=== PATIENT | male | born 1970 | race Caucasian/White ===

== ENCOUNTER 2021-08-15 12:41 | Day surgery (SDC) | payer OTHER, SELFPAY ==
[2021-08-15] MEDS: Lactated Ringers 1,000 ML 100 ML IV (12:55)
[2021-08-15 13:08] VITALS: BP 128/71; PULSE 53; RESP 16; TEMP 36.3; O2SAT 98; BMI 28.8
--- NOTE | 2021-08-15 13:32 | PCM.HP.BLA ---
History and Physical Date of Admission: 08/15/21 Date of Service: 07/22/21 MR#:[id number]:[id number]: DOMINIQUE IBRAHIM #:[id number]:1970 Provider:Yeni Candelario/Sex: 50/M [facility] Int[facility] Vital Signs 07/22/21 09:31 Height 6 ft 1 in Weight: 222 lb 4 oz BMI 29.3 BP 143/86 H Blood Pressure Location Rt brachial Position Sitting Respiration 18 Pulse 60 Pulse Source NIBP Temp 97.6 F L Temp Source Temporal Pulse Oximetry (%) 98 Oxygen Delivery Method room air Intake Visit Reasons: CSCOPE Chief Complaint: screening colonoscopy Barrel Endshake Adjuster Required: No Is patient in pain?: No Allergies No Known Allergies Allergy (Verified 07/22/21 09:32) Medications NK 07/22/21 [History Confirmed 07/22/21] PFSH Medical History (Updated 07/22/21 @ 10:[address] Suresh Burk MD) Anxiety Surgical History (Updated 07/22/21 @ 09:30 by Crista Whitley) No pertinent past surgical history Family History (Updated 07/22/21 @ 09:31 by Crista Whitley) Father Diabetes Heart disease Brother Hypertension Social History (Updated 07/22/21 @ 09:31 by Crista Whitley) Smoking Status: Never smoker HPI HPI HPI: DOMINIQUE IBRAHIM, is a 50 M who presents to the office today with need to schedule screening colonoscopy. Patient has not had prior colonoscopy. Patient has no personal history of diverticulitis, inflammatory bowel disease, or cancer. They describe their bowel habits as normal and occurring once daily with no straining. They are described as soft and formed. Any blood is noted very infrequently and he denies any new fatigue. They do not regularly take fiber supplements but Mr. Ibrahim does take a balanced diet. Patient has no family history of diverticulitis, inflammatory bowel disease, or colon cancer. The patient's weight is stable. Mr. Ibrahim was prompted to seek a screening colonoscopy at the behest of his significant other who is a longtime GI nurse. ROS General General: No weight change, appetite, fatigue, colon cancer, breast cancer or weakness HEENT HEENT: No difficulty swallowing, eye injury, eye surgery, swollen glands or hoarseness Endo Endocrine: No thyroid disease, diabetes mellitus, thyroid cancer, Hair loss, heat intolerance or cold intolerance Cardio Cardiovascular: No murmur, pacemaker, heart disease, atrial fibrillation, high blood pressure, heart attack, heart stent, palpitations, shortness of breat with exertion or chest pain Psych Psychiatric: Yes anxiety; No depression or hearing voices Resp Respiratory: No shortness of breath, No sleep apnea, No cough, No COPD, No asthma, No emphysema and No wheezing Gastro Gastrointestinal: No abdominal pain, No nausea or vomiting, No diarrhea, No constipation, No blood in stool, No acid reflux, No hemorrhoids, No ulcers, No gallbladder problem and No black,tarry stools Elie Hematologic: No blood thinners, No blood disorders, No bleeding, No anemia and No blood clots Neuro Neurologic: No weakness Exam Const General: cooperative, healthy appearing, comfortable, no acute distress, well developed and well groomed Orientation: alert, awake and oriented x3 Resp Effort & Inspection: normal respiratory effort Auscultation: clear to auscultation bilaterally, no rales, no rhonchi and no wheezes Cardio Rhythm: regular rhythm and abnormal rhythm Heart Sounds: S1 normal and S2 normal GI Inspection: normal to inspection, no scars and no visible herniation Palpation: soft, no masses and nontender Assessment and Plan Assessment and Plan (1) Colon cancer screening: Status: Acute Comment: Patient presents for routine screening colonoscopy. He has normal bowel habits. He appears to be at average risk for colon cancer with no first-degree relatives and no personal history of GI diagnoses. Plan - Dr. Suresh Burk MD: Plan to proceed for screening colonoscopy with MAC. Pre-procedure prep discussed and paper instructions provided. Patient is also made aware that he will need to have a fast food delivery driver with him the day of the procedure. I have re-examined the patient. There are no clinical changes since date of exam. Patient states that his reflux has been under better control over the last week. He also states that his prep was uneventful for the colonoscopy and confirms that his output has now been clear.
--- NOTE | 2021-08-15 13:45 | GASB_PTH ---
PATIENT: DOMINIQUE LOZADA LOC: EN U#:[id number] AGE/SX: 51/M ROOM: RE08/15/[address]: Dr. Suresh Burk MD : 1970 BED: DIS: 08/15/2021 SPEC #: [id number] RECD: 08/15/21 15:07 STATUS: REAL TOOTIE #: [id number] JONO: 08/15/21 13:[address]: Suresh Burk DEPT: SURGICAL PATHOLOGY RECD BY: Roland Rangel ENTERED: 08/16/21 10:30 SP TYPE: Gastric Bx OTHR DR: No Primary Care Phys Tissues: A - Gastric mucous membrane B - Gastric mucous membrane C - Gastric mucous membrane D - Transverse colon Procedures: Special Stain Group II Surgery Specimen Level IV Alcian Blue/PAS (control) HEADER OPERATION: Colonoscopy, EGD ([facility]) PRE-OP DIAGNOSIS: GERD, screening TISSUE SUBMITTED: A ? Antral biopsy for H. pylori and pathology, B ? GE junction biopsy, C ? Gastric body biopsy, D ? Transverse colon polyp biopsy MICROSCOPIC DIAGNOSIS A. Gastric antrum, biopsy: Chronic gastritis. See comment. B. Gastroesophageal junction, biopsy: Chronic inflammation. Focal changes of reflux. No evidence of goblet cell metaplasia. See comment. C. Gastric body, biopsy: Minimal chronic inflammation. D. Transverse colon polyp, biopsy: Polypoid fragments of benign colonic mucosa. See comment. AM:minna 08/17/2021 COMMENT A. The results of immunohistochemistry for Helicobacter pylori will be reported separately ([id number]). B. Alcian blue/PAS stain with matched control supports the above diagnosis. D. Neither hyperplastic nor adenomatous change is seen. Clinical correlation is suggested. MICROSCOPIC DESCRIPTION Slides are reviewed. GROSS DESCRIPTION A - Received in fixative is one container labeled with the patient's name and designated antral biopsy. The specimen consists of multiple irregular fragments of light el soft tissue that in aggregate measure 0.5 x 0.5 x 0.1 cm. The specimen is totally submitted in one cassette. B - Received in fixative is one container labeled with the patient's name and designated GE junction biopsy. The specimen consists of two irregular fragments of light el soft tissue that in aggregate measure 0.5 x 0.3 x 0.1 cm. The specimen is totally submitted in one cassette. C - Received in fixative is one container labeled with the patient's name and designated gastric body biopsy. The specimen consists of two irregular fragments of light el soft tissue that in aggregate measure 0.4 x 0.4 x 0.1 cm. The specimen is totally submitted in one cassette. D - Received in fixative is one container labeled with the patient's name and designated transverse colon polyp biopsy. The specimen consists of two irregular fragments of light el soft tissue that in aggregate measure 0.3 x 0.2 x 0.1 cm. The specimen is totally submitted in one cassette. / SJ:rg 08/16/21 TC:3 CPT: 60391 x4, 76154
--- NOTE | 2021-08-15 13:45 | IMM_PTH ---
PATIENT: DOMINIQUE LOZADA LOC: EN U#:[id number] AGE/SX: 51/M ROOM: RE08/15/[address]: Dr. Suresh Burk MD : 1970 BED: DIS: 08/15/2021 SPEC #: [id number] RECD: 08/16/21 13:43 STATUS: REAL REQ #: [id number] JONO: 08/15/21 13:[address]: Suresh Burk DEPT: IMMUNOHISTOCHEMISTRY RECD BY: Ida Cruz ENTERED: 08/16/21 13:43 SP TYPE: IMMUNO OTHR DR: No Primary Care Phys Tissues: A - Stomach, NOS Procedures: H Pylori (initial) PHYSICIAN & INSTITUTION [place] [address] SPECIMEN INFORMATION: Tissue Source: A ? Antral biopsy Clinical Info: GERD, screening Specimen Number: [id number] CPT code: 83758 METHODOLOGY: Deparaffinized sections of prefer/formalin-fixed tissue or PAP/DQ stained slides are incubated with monoclonal/polyclonal antibodies/oligonucleotide probes. Localization is made via biotin free immunoperoxidase method. Appropriate controls are performed and reacted as expected. Results on target cell population are indicated in the following table: RESULTS: ANTIBODY / CLONE RESULT Block A H Pylori (polyclonal) positive These tests were developed and their performance characteristics determined by [facility]. They may not have been cleared or approved by the U.S. Food and Drug Administration. The FDA has determined that such clearance or approval is not necessary. INTERPRETATION: A. Antral biopsy: Positive for Helicobacter pylori organisms. AM:minna 08/17/2021
[2021-08-15 14:40] VITALS: BP 128/71; BP 97/42; PULSE 58; RESP 16; TEMP 35.8; O2SAT 96
[2021-08-15 14:45] VITALS: BP 111/80; BP 128/71; PULSE 56; RESP 16; O2SAT 100
--- NOTE | 2021-08-15 14:46 | OP.CCLET_ITS ---
08/15/2021 No Primary Care Physician Re : Upper GI endoscopy procedure for Perry Ibrahim Dear Care Physician This procedure was performed on Sunday, August 15, 2021. My impressions and recommendations are as follows: Impressions : - Erythematous duodenopathy. - Acute gastritis. Biopsied. - No gross lesions in esophagus. Biopsied. Recommendations : - Discharge patient to home (via wheelchair). - Resume regular diet today. - Continue present medications. - Await pathology results. My findings are described in the full procedure note, which is enclosed. If I can be of further assistance, please feel free to contact me at Doctor phone number(s): , Work: . Sincerely, Suresh Burk MD 08/15/2021 2:45:52 PM This report has been signed electronically.
--- NOTE | 2021-08-15 14:46 | OP.EGD_ITS ---
Patient Name: Perry Ibrahim Procedure Date: 08/15/2021 1:27 PM Date of : 1970 Age: 51 Procedure: Upper GI endoscopy Indications: Suspected gastro-esophageal reflux disease Providers: Suresh Burk MD Medicines: Monitored Anesthesia Care Patient Profile: Refer to note in patient chart for documentation of history and physical. Complications: No immediate complications. Estimated blood loss: Minimal. Procedure: Pre-Anesthesia Assessment: - ASA Grade Assessment: I - A normal, healthy patient. - The heart rate, respiratory rate, oxygen saturations, blood pressure, adequacy of pulmonary ventilation, and response to care were monitored throughout the procedure. After obtaining informed consent, the endoscope was passed under direct vision. Throughout the procedure, the patient's blood pressure, pulse, and oxygen saturations were monitored continuously. The gastroscope was introduced through the mouth, and advanced to the second part of duodenum. The upper GI endoscopy was accomplished without difficulty. The patient tolerated the procedure fairly well. Scope In: 1:41:14 PM Scope Out: 1:58:56 PM Total Procedure Duration Time 0 hours 17 minutes 42 seconds Findings: Patchy mildly erythematous mucosa without active bleeding and with no stigmata of bleeding was found in the first portion of the duodenum. Patchy mild inflammation characterized by erythema was found in the gastric antrum. Biopsies were taken with a cold forceps for histology. Biopsies were taken with a cold forceps for Helicobacter pylori testing. Estimated blood loss was minimal. No gross lesions were noted in the lower third of the esophagus. Biopsies were taken with a cold forceps for histology. Estimated blood loss was minimal. Impression: - Erythematous duodenopathy. - Acute gastritis. Biopsied. - No gross lesions in esophagus. Biopsied. Recommendation: - Discharge patient to home (via wheelchair). - Resume regular diet today. - Continue present medications. - Await pathology results. Procedure Code(s): --- Professional --- 46824, Esophagogastroduodenoscopy, flexible, transoral; with biopsy, single or multiple Diagnosis Code(s): --- Professional --- K31.89, Other diseases of stomach and duodenum K29.00, Acute gastritis without bleeding CPT copyright 2017 [employer]. All rights reserved. The codes documented in this report are preliminary and upon hvac maintenance technician review may be revised to meet current compliance requirements. Suresh Burk MD 08/15/2021 2:45:52 PM This report has been signed electronically. Number of Addenda: 0 Note Initiated On: 08/15/2021 1:27 PM
[2021-08-15 14:50] VITALS: BP 119/77; BP 128/71; PULSE 55; RESP 16; O2SAT 100
[2021-08-15 14:55] VITALS: BP 115/83; BP 128/71; PULSE 58; RESP 16; TEMP 35.9; O2SAT 99
--- NOTE | 2021-08-15 14:56 | OP.COLON_ITS ---
Patient Name: Perry Ibrahim Procedure Date: 08/15/2021 1:59 PM Date of : 1970 Age: 51 Procedure: Colonoscopy Indications: This is the patient's first colonoscopy Providers: Suresh Burk MD Medicines: Monitored Anesthesia Care Patient Profile: Refer to note in patient chart for documentation of history and physical. Refer to note in patient chart for documentation of history and physical. Last Colonoscopy: none. The patient's first colonoscopy is today. Complications: No immediate complications. Estimated blood loss: Minimal. Procedure: Pre-Anesthesia Assessment: - ASA Grade Assessment: I - A normal, healthy patient. - The heart rate, respiratory rate, oxygen saturations, blood pressure, adequacy of pulmonary ventilation, and response to care were monitored throughout the procedure. After I obtained informed consent, the scope was passed under direct vision. Throughout the procedure, the patient's blood pressure, pulse, and oxygen saturations were monitored continuously. The adult colonoscope was introduced through the anus and advanced to the ascending colon. The colonoscopy was aborted due to the difficulty of the procedure. Lavage did not allow for the successful completion of the procedure. The quality of the bowel preparation was inadequate. Scope In: 2:02:55 PM Scope Withdrawal Time 0 hours 17 minutes 31 seconds Scope Out: 2:36:26 PM Total Procedure Duration Time 0 hours 33 minutes 31 seconds Findings: A 6 mm polyp was found in the proximal transverse colon. The polyp was hyperplastic. Biopsies were taken with a cold forceps for histology. Estimated blood loss was minimal. The exam was otherwise without abnormality on direct and retroflexion views. Impression: - The procedure was aborted due to the difficulty of the procedure. - Preparation of the colon was inadequate. - One 6 mm polyp in the proximal transverse colon. Biopsied. - The examination was otherwise normal on direct and retroflexion views. Recommendation: - Discharge patient to home (via wheelchair). - Await pathology results. - Repeat colonoscopy in 1 month for screening purposes. - Continue present medications. Procedure Code(s): --- Professional --- 87436, 50, Colonoscopy, flexible; with biopsy, single or multiple Diagnosis Code(s): --- Professional --- Z53.8, Procedure and treatment not carried out for other reasons D12.3, Benign neoplasm of transverse colon (hepatic flexure or splenic flexure) CPT copyright 2017 [employer]. All rights reserved. The codes documented in this report are preliminary and upon excavator operator review may be revised to meet current compliance requirements. Suresh Burk MD 08/15/2021 2:56:07 PM This report has been signed electronically. Number of Addenda: 0 Note Initiated On: 08/15/2021 1:59 PM
--- NOTE | 2021-08-15 14:57 | OP.CCLET_ITS ---
08/15/2021 No Primary Care Physician Re : Colonoscopy procedure for Perry Ibrahim Dear Care Physician This procedure was performed on Sunday, August 15, 2021. My impressions and recommendations are as follows: Impressions : - The procedure was aborted due to the difficulty of the procedure. - Preparation of the colon was inadequate. - One 6 mm polyp in the proximal transverse colon. Biopsied. - The examination was otherwise normal on direct and retroflexion views. Recommendations : - Discharge patient to home (via wheelchair). - Await pathology results. - Repeat colonoscopy in 1 month for screening purposes. - Continue present medications. My findings are described in the full procedure note, which is enclosed. If I can be of further assistance, please feel free to contact me at Doctor phone number(s): , Work: . Sincerely, Suresh Burk MD 08/15/2021 2:56:07 PM This report has been signed electronically.
[2021-08-15 15:09] VITALS: BP 128/71
== END 2021-08-15 15:33 | disposition home or self-care (01) ==
LOC: EN 12:44 → AC 12:44
PROVIDERS: Referring Provider Surgery; Visit Provider Surgery
PROC: 0DJD8ZZ Inspection of Lower Intestinal Tract, Via Natural or Artificial Opening Endoscopic (ICD-10-PCS; CPT 45378; principal; 2021-08-15 13:40)
DX: Z12.11 Encounter for screening for malignant neoplasm of colon (principal); K63.5 Polyp of colon; Z53.8 Procedure and treatment not carried out for other reasons; K29.50 Unspecified chronic gastritis without bleeding; K21.9 Gastro-esophageal reflux disease without esophagitis
CPT/HCPCS: 43239; 45378; 87426; 88305; 88313; 88342; C9803; J7120

== ENCOUNTER 2021-08-29 12:30 | Day surgery (SDC) | payer OTHER, SELFPAY ==
[2021-08-29] VITALS (8 sets, daily range): BP systolic 94–133; BP diastolic 61–94; PULSE 47–69; RESP 16–18; TEMP 36–36.6; O2SAT 99–100; BMI 28.6
--- NOTE | 2021-08-29 13:17 | HP.PCM_ITS ---
History and Physical Date of Admission: 08/29/21 08/15/21 1332MR#: [id number]:DOMINIQUE IBRAHIM DRep #:[id number]: 1970 51From: Suresh Burk MDPCP:Care Physician,No Primary Status:REG SDCLocation: [id number] History and Physical Date of Admission: 08/15/21 Date of Service: 07/22/21 MR#:[id number]: DOMINIQUE IBRAHIM DALERep #:[id number]:1970 Provider:Dr. Suresh Burk, MDAge/Sex: 50/M [facility] Vital Signs 07/22/21 09:31 Height 6 ft 1 in Weight: 222 lb 4 oz BMI 29.3 BP 143/86 H Blood Pressure Location Rt brachial Position Sitting Respiration 18 Pulse 60 Pulse Source NIBP Temp 97.6 F L Temp Source Temporal Pulse Oximetry (%) 98 Oxygen Delivery Method room air Intake Visit Reasons: CSCOPE Chief Complaint: screening colonoscopy Meter Supervisor Required: No Is patient in pain?: No Allergies No Known Allergies Allergy (Verified 07/22/21 09:32) Medications NK 07/22/21 [History Confirmed 07/22/21] PFSH Medical History (Updated 07/22/21 @ 10:[address] Suresh Burk MD) Anxiety Surgical History (Updated 07/22/21 @ 09:30 by Crista Whitley) No pertinent past surgical history Family History (Updated 07/22/21 @ 09:31 by Crista Whitley) Father Diabetes Heart disease Brother Hypertension Social History (Updated 07/22/21 @ 09:31 by Crista Whitley) Smoking Status: Never smoker HPI HPI HPI: DOMINIQUE IBRAHIM, is a 50 M who presents to the office today with need to schedule screening colonoscopy. Patient has not had prior colonoscopy. Patient has no personal history of diverticulitis, inflammatory bowel disease, or cancer. They describe their bowel habits as normal and occurring once daily with no straining. They are described as soft and formed. Any blood is noted very infrequently and he denies any new fatigue. They do not regularly take fiber supplements but Mr. Ibrahim does take a balanced diet. Patient has no family history of diverticulitis, inflammatory bowel disease, or colon cancer. The patient's weight is stable. Mr. Ibrahim was prompted to seek a screening colonoscopy at the behest of his significant other who is a longtime GI nurse. ROS General General: No weight change, appetite, fatigue, colon cancer, breast cancer or weakness HEENT HEENT: No difficulty swallowing, eye injury, eye surgery, swollen glands or hoarseness Endo Endocrine: No thyroid disease, diabetes mellitus, thyroid cancer, Hair loss, heat intolerance or cold intolerance Cardio Cardiovascular: No murmur, pacemaker, heart disease, atrial fibrillation, high blood pressure, heart attack, heart stent, palpitations, shortness of breat with exertion or chest pain Psych Psychiatric: Yes anxiety; No depression or hearing voices Resp Respiratory: No shortness of breath, No sleep apnea, No cough, No COPD, No asthma, No emphysema and No wheezing Gastro Gastrointestinal: No abdominal pain, No nausea or vomiting, No diarrhea, No constipation, No blood in stool, No acid reflux, No hemorrhoids, No ulcers, No gallbladder problem and No black,tarry stools Elie Hematologic: No blood thinners, No blood disorders, No bleeding, No anemia and No blood clots Neuro Neurologic: No weakness Exam Const General: cooperative, healthy appearing, comfortable, no acute distress, well developed and well groomed Orientation: alert, awake and oriented x3 Resp Effort & Inspection: normal respiratory effort Auscultation: clear to auscultation bilaterally, no rales, no rhonchi and no wheezes Cardio Rhythm: regular rhythm and abnormal rhythm Heart Sounds: S1 normal and S2 normal GI Inspection: normal to inspection, no scars and no visible herniation Palpation: soft, no masses and nontender Assessment and Plan Assessment and Plan (1) Colon cancer screening: Status: Acute Comment: Patient presents for routine screening colonoscopy. He has normal bowel habits. He appears to be at average risk for colon cancer with no first-degree relatives and no personal history of GI diagnoses. Plan - Dr. Suresh Burk MD: Plan to proceed for screening colonoscopy with MAC. Pre-procedure prep discussed and paper instructions provided. Patient is also made aware that he will need to have a regional company flatbed truck driver with him the day of the procedure. I have re-examined the patient. There are no clinical changes since date of exam. Patient states that his reflux has been under better control over the last week. He also states that his prep was uneventful for the colonoscopy and confirms that his output has now been clear. 08/15/21 0123 <Electronically signed by Suresh Burk MD> I have examined the patient the following changes are noted: Patient states he has completed a 2-day prep and things are coming out largely clear but there is still a brown character to it. 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 While he was due for a colonoscopy at that same visit, we found his prep inadequate to complete a screening colonoscopy and he thus presents today for a make-up. Given his report of some brown output, I have requested an enema to be performed at bedside prior to the procedure today.
--- NOTE | 2021-08-29 13:19 | SUR.PREOP ---
tap water enema given.
--- NOTE | 2021-08-29 13:32 | SUR.PREOP ---
results of dark couldn't see bottom of toilet. 2nd enema given.
[2021-08-29] MEDS: Lactated Ringers 1,000 ML 100 ML IV ×2 (13:38→14:31)
--- NOTE | 2021-08-29 13:45 | COLBX_PTH ---
PATIENT: DOMINIQUE LOZADA LOC: EN U#:[id number] AGE/SX: 51/M ROOM: RE08/29/[address]: Dr. Suresh Burk MD : 1970 BED: DIS: 08/29/2021 SPEC #: [id number] RECD: 08/29/21 19:00 STATUS: REAL WHITTAKERRowan #: [id number] JONO: 08/29/21 13:[address]: Suresh Burk DEPT: SURGICAL PATHOLOGY RECD BY: Roland Rangel ENTERED: 08/30/21 10:10 SP TYPE: COLON BX OTHR DR: No Primary Care Phys Tissues: Rectum, NOS Procedures: Surgery Specimen Level IV HEADER OPERATION: Colonoscopy (MAC) PRE-OP DIAGNOSIS: Colon cancer screening TISSUE SUBMITTED: Rectal polyp MICROSCOPIC DIAGNOSIS Rectal polyp, biopsy: Fragments of villous adenoma. SJ:minna 08/31/2021 MICROSCOPIC DESCRIPTION Slides are reviewed. GROSS DESCRIPTION Received in fixative is one container labeled with the patient's name and designated rectal polyp. The specimen consists of multiple irregular fragments of el-pink soft tissue that in aggregate measure 3 x 2.5 x 0.3 cm. The largest piece measures 1 cm in greatest dimension. The largest piece is serially sectioned. The entire specimen is submitted in one cassette. / SJ:rg 08/30/21 TC:1 CPT: 43715
[2021-08-29] MEDS: 0.9% Normal Saline (Pres. free 10 ML Vial (14:30)
[2021-08-29] MEDS: 0.9% Saline Lock 10 ML Syringe IV (14:30)
[2021-08-29] MEDS: Epinephrine (1 mg/ml) 1 MG/ML VIAL (14:30)
--- NOTE | 2021-08-29 15:01 | OP.COLON_ITS ---
Patient Name: Perry Ibrahim Procedure Date: 08/29/2021 1:39 PM Date of : 1970 Age: 51 Procedure: Colonoscopy Indications: Screening for colorectal malignant neoplasm, This is the patient's first colonoscopy Providers: Suresh Burk MD Referring MD: Suresh Burk MD Medicines: Monitored Anesthesia Care Patient Profile: Refer to note in patient chart for documentation of history and physical. This is a 51 year old male. Last Colonoscopy: none. The patient's first colonoscopy is today. Complications: No immediate complications. Estimated blood loss: Minimal. Procedure: Pre-Anesthesia Assessment: - The heart rate, respiratory rate, oxygen saturations, blood pressure, adequacy of pulmonary ventilation, and response to care were monitored throughout the procedure. After I obtained informed consent, the scope was passed under direct vision. Throughout the procedure, the patient's blood pressure, pulse, and oxygen saturations were monitored continuously. The colonoscope was introduced through the anus and advanced to the terminal ileum, with identification of the ileocecal valve. The colonoscopy was performed without difficulty. The patient tolerated the procedure well. The quality of the bowel preparation was adequate to identify polyps. Scope In: 1:45:43 PM Scope Withdrawal Time 0 hours 53 minutes 19 seconds Scope Out: 2:44:26 PM Total Procedure Duration Time 0 hours 58 minutes 43 seconds Findings: A few small-mouthed diverticula were found in the mid sigmoid colon. No biopsies or other specimens were collected for this exam. A 5 mm polyp was found in the rectum at 10 cm proximal to the anus. The polyp was sessile. Polypectomy was attempted, initially using a saline injection-lift technique with a hot snare. Polyp resection was incomplete with this device. This intervention then required a different device and polypectomy technique. The polyp was removed with a piecemeal technique using a hot snare. Resection and retrieval were complete. Estimated blood loss was minimal. Submucosal injection of epinephrine 2.0mL in total The exam was otherwise without abnormality on direct and retroflexion views. Impression: - Diverticulosis in the mid sigmoid colon. No specimens collected. - One 5 mm polyp (adenomatous) in the rectum at 10 cm proximal to the anus, removed piecemeal using a hot snare. Resected and retrieved. - The examination was otherwise normal on direct and retroflexion views. Recommendation: - Discharge patient to home (via wheelchair). - Resume regular diet today. - Continue present medications. - Await pathology results. - Repeat colonoscopy for surveillance based on pathology results. Procedure Code(s): --- Professional --- 33785, Colonoscopy, flexible; with removal of tumor(s), polyp(s), or other lesion(s) by snare technique Diagnosis Code(s): --- Professional --- Z12.11, Encounter for screening for malignant neoplasm of colon D12.8, Benign neoplasm of rectum K57.30, Diverticulosis of large intestine without perforation or abscess without bleeding CPT copyright 2017 [employer]. All rights reserved. The codes documented in this report are preliminary and upon chief transfer and pumphouse operator review may be revised to meet current compliance requirements. Suresh Burk MD 08/29/2021 3:00:47 PM This report has been signed electronically. Number of Addenda: 0 Note Initiated On: 08/29/2021 1:39 PM
--- NOTE | 2021-08-29 15:02 | OP.CCLET_ITS ---
08/29/2021 No Primary Care Physician Re : Colonoscopy procedure for Perry Ibrahim Dear Care Physician This procedure was performed on Sunday, August 29, 2021. My impressions and recommendations are as follows: Impressions : - Diverticulosis in the mid sigmoid colon. No specimens collected. - One 5 mm polyp (adenomatous) in the rectum at 10 cm proximal to the anus, removed piecemeal using a hot snare. Resected and retrieved. - The examination was otherwise normal on direct and retroflexion views. Recommendations : - Discharge patient to home (via wheelchair). - Resume regular diet today. - Continue present medications. - Await pathology results. - Repeat colonoscopy for surveillance based on pathology results. My findings are described in the full procedure note, which is enclosed. If I can be of further assistance, please feel free to contact me at Doctor phone number(s): , Work: . Sincerely, Suresh Bruk MD 08/29/2021 3:00:47 PM This report has been signed electronically.
[2021-08-29] MEDS: Ibuprofen 200 MG Tablet 400 MG PO (15:15)
== END 2021-08-29 16:23 ==
LOC: EN 12:30 → AC 12:31
PROVIDERS: Referring Provider Surgery; Visit Provider Surgery
PROC: 0DJD8ZZ Inspection of Lower Intestinal Tract, Via Natural or Artificial Opening Endoscopic (ICD-10-PCS; CPT 45378; principal; 2021-08-29 13:40)
DX: Z12.11 Encounter for screening for malignant neoplasm of colon (principal); D12.8 Benign neoplasm of rectum; K57.30 Diverticulosis of large intestine without perforation or abscess without bleeding; K21.9 Gastro-esophageal reflux disease without esophagitis
CPT/HCPCS: 45385; 87426; 88305; C9803; J7120; A4216; J3490

== ENCOUNTER 2022-10-30 09:22 | Day surgery (SDC) | payer OTHER, SELFPAY ==
[2022-10-30] VITALS (9 sets, daily range): BP systolic 93–130; BP diastolic 64–80; PULSE 54–64; RESP 14–18; TEMP 35.9–36.3; O2SAT 98–100; BMI 28.8
[2022-10-30] MEDS: Lactated Ringers 1,000 ML 15 ML IV (10:02)
--- NOTE | 2022-10-30 10:22 | SUR.PREOP ---
0950 After IV insertion, pt states he feels like he is going to pass out, HOB lowered, significant other at bedside, color becoming pale, brief loss of consciousness & snoring resp approx seconds then pt awakened and started to respond, resp easy. Pt returned to baseline, see vital signs, POC glucose obtained, Kayley VINES charge to room, Dr Lassiter evaluated pt at bedside. Plan to proceed with scheduled colonoscopy.
--- NOTE | 2022-10-30 10:29 | PCM.HP.BLA ---
History and Physical Date of Admission: 10/30/22 Date of Service:? 08/18/22 MR#: [id number] Acct: [id number] Name:DOMINIQUE ESPINOZA Rep #: [id number] : 1970 ? ? Provider: Dr. Suresh Burk MD Age/Sex:? 52/M ? ? Location: [facility] Status: Signed Intake Vital Signs ? 08/29/2113:06 08/18/2213:28 Height 6 ft 1 in 6 ft 1 in Weight: ? 227 lb 8 oz BMI ? 29.9 BP ? 123/82 H Blood Pressure Location ? Rt popliteal Position ? Sitting Respiration ? 16 Pulse ? 65 Pulse Source ? Monitor Temp ? 97 F L Temp Source ? Temporal Pulse Oximetry (%) ? 97 Oxygen Delivery Method ? room air Intake Visit Reasons:?1 YR REPEAT CSCOPE Chief Complaint: screening colonoscopy Application Processor Required: No Is patient in pain?: No Allergies No Known Allergies Allergy (Verified 08/18/22 13:31) PFSH Medical History Alcohol use Anxiety Back pain Gastric reflux Non-smoker Surgical History? History of esophagogastroduodenoscopy (EGD) No pertinent past surgical history Family History? Father Diabetes Heart diseaseBrother HypertensionSister Colon cancer Lupus Social History? Smoking Status:? Never smoker HPI HPI HPI: Patient returns for preparation of 1 year surveillance colonoscopy after screening colonoscopy with me on 08/29/2021 showed a villous adenoma of the rectum.? He denies any significant interval health changes in the past 1 year.? Specifically regarding his bowel habits, he confirms that he has been regular?and details a frequency of once to twice daily.? He states that he does so without any significant straining.? He acknowledges that sometimes there is caliber change, but he is pretty uniform most of the time.? He denies any bloody or dark stools.? He denies any significant weight changes.? His upper GI symptoms remained stable. Patient does report significant development with his sister?whom he states is currently undergoing treatment for probable metastatic colon cancer.? He states that she is now 60 and never went through with receiving a colonoscopy.? We also reviewed his other family history and he shares that only has a paternal uncle had colon cancer besides this new diagnosis with his sister. ROS General General: No weight change, appetite, fatigue, colon cancer, breast cancer or weakness HEENT HEENT: No difficulty swallowing, eye injury, eye surgery, swollen glands or hoarseness Endo Endocrine: No thyroid disease, diabetes mellitus, thyroid cancer, Hair loss, heat intolerance or cold intolerance Skin Skin: No rash or changing moles Breast Breast: No left breast lump, right breast lump, nipple discharge, breast pain, abnormal mammogram, abnormal US or breast enlargement Musc Musculoskeletal: No back problems, arthritis, rheumatoid arthritis, gout or joint pain Cardio Cardiovascular: No murmur, pacemaker, heart disease, atrial fibrillation, high blood pressure, heart attack, heart stent, palpitations, shortness of breat with exertion or chest pain Psych Psychiatric: Yes anxiety; No depression or hearing voices Resp Respiratory: No shortness of breath, No sleep apnea, No cough, No COPD, No asthma, No emphysema and No wheezing Gastro Gastrointestinal: No abdominal pain, No nausea or vomiting, No diarrhea, No constipation, No blood in stool, No acid reflux, No hemorrhoids, No ulcers, No gallbladder problem and No black,tarry stools Elie Hematologic: No blood thinners, No blood disorders, No bleeding, No anemia and No blood clots Neuro Neurologic: No system reviewed and no additional complaints, except as documented, No as per HPI, No abnormal gait, No abnormal hearing, No abnormal movements, No abnormal speech, No behavioral changes, No burning sensations, No confusion, No convulsions, No disequilibrium, No dizziness, No localized weakness, No frequent falls, No headache(s), No lack of coordination, No loss of vision, No memory loss, No numbness, No other visual disturbances, No radicular pain, No restless legs, No sensory deficit, No syncope, No tingling, No tremor(s), No weakness and No other Exam Const General: cooperative, healthy appearing, comfortable and no acute distress Orientation: alert, awake and oriented x3 Resp Effort & Inspection: normal respiratory effort GI Other: Nondistended, soft, nontender to palpation x4 quadrants Assessment and Plan Assessment and Plan (1) History of colon polyps: ?Status:?Acute (2) Villous adenoma of rectum: ?Status:?Acute ?Comment: Is a 52-year-old male who underwent screening colonoscopy last August and was found to have a small villous adenoma of the rectum.? Polyp was felt to be completely removed and retrieved, however, given the histology surveillance colonoscopy at 1 year is recommended.? Patient presents today without any significant interval changes to his personal health.? However, he reports that his sister was diagnosed with probable metastatic colon cancer at the age of 60 in the last couple of months.? Given his history and this new news, we will plan for surveillance colonoscopy as previously decided.? Patient did have a difficulty with his prep during the first scopes so we will plan for a 2-day prep this go around and have advised him to restrict high-fiber foods for least 4 days prior to his prep to ensure a fruitful exam. ?Plan: ? Surveillance colonoscopy under local MAC at first mutual convenience.? Patient to complete 2-day bowel prep and limit high-fiber foods 4 days prior. I have examined the patient and the H&P has been reviewed. There are no clinical changes since date of exam. He confirms that he completed his bowel prep successfully. He reports that his output is now clear. We will plan to proceed to the endoscopy suite for surveillance colonoscopy under local MAC as discussed above.
--- NOTE | 2022-10-30 10:30 | COLBX_PTH ---
PATIENT: DOMINIQUE LOZADA LOC: EN U#:[id number] AGE/SX: 52/M ROOM: RE10/30/[address]: Dr. Suresh Burk MD : 1970 BED: DIS: 10/30/2022 SPEC #: [id number] RECD: 10/30/22 13:59 STATUS: REAL TOOTIE #: [id number] JONO: 10/30/22 10:[address]: Suresh Burk DEPT: SURGICAL PATHOLOGY RECD BY: Maria Isabel Rae ENTERED: 10/31/22 10:04 SP TYPE: COLON BX OT DR: No Primary Care Phys Tissues: A - Transverse colon B - Sigmoid colon biopsy C - Rectum, NOS Procedures: Surgery Specimen Level IV HEADER OPERATION: Colonoscopy (MAC) PRE-OP DIAGNOSIS: History of colon polyps; villous adenoma of rectum TISSUE SUBMITTED: A ? Distal transverse polyp biopsy at 55 cm, B ? Sigmoid colon polyp at 25 cm, C ? Rectal polyp at 8 cm with hot snare and biopsy MICROSCOPIC DIAGNOSIS A. Distal transverse colon polyp at 55 cm, biopsy: Polypoid fragments of benign colonic mucosa. See comment. B. Sigmoid colon polyp at 25 cm, biopsy: Fragments of tubular adenoma. C. Rectal polyp at 8 cm, biopsy: Fragments of tubulovillous adenoma. AM:minna 11/01/2022 COMMENT A. Neither hyperplastic nor adenomatous change is identified. Clinical correlation is suggested. MICROSCOPIC DESCRIPTION Slides are reviewed. GROSS DESCRIPTION A - Received in fixative is one container labeled with the patient's name and designated distal transverse polyp biopsy at 55 cm. The specimen consists of one irregular fragment of light el soft tissue that measures 0.4 x 0.2 x 0.1 cm. The specimen is totally submitted in one cassette. B - Received in fixative is one container labeled with the patient's name and designated sigmoid colon polyp at 25 cm. The specimen consists of three minute fragments each measuring 0.1 cm in greatest dimension. C - Received in fixative is one container labeled with the patient's name and designated rectal polyp at 8 cm with hot snare and biopsy. The specimen consists of multiple irregular fragments of light el soft tissue that in aggregate measure 2.8 x 1.5 x 0.1 cm. The specimen is totally submitted in one cassette. / ALFONSO:minna 10/31/2022 TC:5 CPT: 84870 x3
[2022-10-30 10:41] LABS: Bedside Glucose 96 mg/dL (74-106)
--- NOTE | 2022-10-30 11:53 | OP.COLON_ITS ---
Patient Name: Perry Ibrahim Procedure Date: 10/30/2022 10:20 AM Date of : 1970 Age: 52 Procedure: Colonoscopy Indications: Surveillance: History of piecemeal removal adenoma on last colonoscopy (< 3 yrs) Providers: Suresh Burk MD Referring MD: No Primary Care Physician Medicines: See the Anesthesia note for documentation of the administered medications Patient Profile: Refer to note in patient chart for documentation of history and physical. Last Colonoscopy: 1 year ago. Complications: No immediate complications. Estimated blood loss: Minimal. Procedure: Pre-Anesthesia Assessment: - The heart rate, respiratory rate, oxygen saturations, blood pressure, adequacy of pulmonary ventilation, and response to care were monitored throughout the procedure. After I obtained informed consent, the scope was passed under direct vision. Throughout the procedure, the patient's blood pressure, pulse, and oxygen saturations were monitored continuously. The Colonoscope was introduced through the anus and advanced to the cecum, identified by the ileocecal valve. The colonoscopy was performed without difficulty. The patient tolerated the procedure well. The quality of the bowel preparation was adequate. Scope In: 10:41:29 AM Scope Withdrawal Time 0 hours 53 minutes 47 seconds Scope Out: 11:39:24 AM Total Procedure Duration Time 0 hours 57 minutes 55 seconds Findings: Three semi-sessile, non-bleeding polyps were found in the rectum, sigmoid colon and distal transverse colon. The polyps were 12 mm in size. These polyps were removed with a saline injection-lift technique using a hot snare. Resection and retrieval were complete. Estimated blood loss was minimal. The exam was otherwise without abnormality on direct and retroflexion views. Impression: - Three 12 mm, non-bleeding polyps in the rectum, in the sigmoid colon and in the distal transverse colon, removed using injection-lift and a hot snare. Resected and retrieved. - The examination was otherwise normal on direct and retroflexion views. Recommendation: - Discharge patient to home (via wheelchair). - Resume previous diet today. - Continue present medications. - Await pathology results. - Repeat colonoscopy date to be determined after pending pathology results are reviewed for surveillance based on pathology results. - Telephone my office for pathology results in 1 week. Procedure Code(s): --- Professional --- 91662, Colonoscopy, flexible; with removal of tumor(s), polyp(s), or other lesion(s) by snare technique 13267, Colonoscopy, flexible; with directed submucosal injection(s), any substance Diagnosis Code(s): --- Professional --- Z86.010, Personal history of colonic polyps K62.1, Rectal polyp D12.5, Benign neoplasm of sigmoid colon D12.3, Benign neoplasm of transverse colon (hepatic flexure or splenic flexure) CPT copyright 2017 [employer]. All rights reserved. The codes documented in this report are preliminary and upon kitchen runner review may be revised to meet current compliance requirements. Suresh Burk MD 10/30/2022 11:52:42 AM This report has been signed electronically. Number of Addenda: 0 Note Initiated On: 10/30/2022 10:20 AM
--- NOTE | 2022-10-30 11:53 | OP.CCLET_ITS ---
10/30/2022 No Primary Care Physician Re : Colonoscopy procedure for Perry Ibrahim Dear Care Physician This procedure was performed on Sunday, October 30, 2022. My impressions and recommendations are as follows: Impressions : - Three 12 mm, non-bleeding polyps in the rectum, in the sigmoid colon and in the distal transverse colon, removed using injection-lift and a hot snare. Resected and retrieved. - The examination was otherwise normal on direct and retroflexion views. Recommendations : - Discharge patient to home (via wheelchair). - Resume previous diet today. - Continue present medications. - Await pathology results. - Repeat colonoscopy date to be determined after pending pathology results are reviewed for surveillance based on pathology results. - Telephone my office for pathology results in 1 week. My findings are described in the full procedure note, which is enclosed. If I can be of further assistance, please feel free to contact me at Doctor phone number(s): , Work: . Sincerely, Suresh Burk MD 10/30/2022 11:52:42 AM This report has been signed electronically.
== END 2022-10-30 12:48 | disposition home or self-care (01) ==
LOC: EN 09:26 → AC 09:28
PROVIDERS: Visit Provider Surgery
PROC: 0DJD8ZZ Inspection of Lower Intestinal Tract, Via Natural or Artificial Opening Endoscopic (ICD-10-PCS; CPT 45378; principal; 2022-10-30 10:25)
DX: Z12.11 Encounter for screening for malignant neoplasm of colon (principal); D12.8 Benign neoplasm of rectum; D12.5 Benign neoplasm of sigmoid colon; Z86.010 Personal history of colon polyps; Z80.0 Family history of malignant neoplasm of digestive organs
CPT/HCPCS: 45385; 45381; 82962; 88305; J7120

== ENCOUNTER 2023-11-12 10:37 | Day surgery (SDC) | payer BC, SELFPAY ==
[2023-11-12] VITALS (8 sets, daily range): BP systolic 85–119; BP diastolic 54–71; PULSE 53–64; RESP 16; TEMP 35.8–36.7; O2SAT 94–97; BMI 29.0
--- NOTE | 2023-11-12 11:51 | PCM.HP.BLA ---
History and Physical Date of Admission: 11/12/23 Date of Service: 11/02/23 MR#: [id number] Acct: [id number] Name: DOMINIQUE IBRAHIM Rep #: [id number] : 1970 Provider: Dr. 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 Is patient in pain?: No Allergies No Known Allergies Allergy (Verified 11/02/23 13:54) Medications NK 10/05/22 [History Confirmed 11/02/23] PFSH Medical History Alcohol use Anxiety Back pain Gastric reflux Non-smoker Surgical History (Updated 11/02/23 @ 13:53 by Marcelle Fragoso LPN) History of esophagogastroduodenoscopy (EGD) Hx of colonoscopy Family History (Updated 11/02/23 @ 13:53 by Marcelle Fragoso LPN) Father Diabetes Heart diseaseBrother HypertensionSister Colon cancer LupusUncle Colon cancer Social History Smoking Status: Never smoker HPI HPI HPI: Patient is a 53-year-old male who returns for preparation of 1 year surveillance colonoscopy after screening colonoscopy with oh on 08/29/2021 showed a villous adenoma of the rectum. Last year we completed a surveillance colonoscopy on 10/30/2022 and Mr. Ibrahim was found to have a rectal tubulovillous adenoma so we resolved to proceed with yet another surveillance colonoscopy in a year. Once again, he denies any significant interval health changes in the past 1 year. Specifically regarding his bowel habits, he confirms that he has been regular and reports a frequency of bowel movements once to twice daily. He states that he does so without any significant straining and has not noticed any bleeding. He confirms that he is not diagnosed with any new diagnoses since her last encounters. He also denies any development of any reflux symptomology. He does share that he remains anxious about getting this exam completed as he relates that his sister is not doing well. He goes on to provide her pathology and imaging results?describing an advanced rectal cancer. He also adds that this was the same diagnosis to which his uncle succumbed in his 60s. Below is recapitulated from patient's prior visit for ease of review: Patient returns for preparation of 1 year surveillance colonoscopy after screening colonoscopy with me on 08/29/2021 showed a villous adenoma of the rectum. He denies any significant interval health changes in the past 1 year. Specifically regarding his bowel habits, he confirms that he has been regular?and details a frequency of once to twice daily. He states that he does so without any significant straining. He acknowledges that sometimes there is caliber change, but he is pretty uniform most of the time. He denies any bloody or dark stools. He denies any significant weight changes. His upper GI symptoms remained stable. Patient does report significant development with his sister?whom he states is currently undergoing treatment for probable metastatic colon cancer. He states that she is now 60 and never went through with receiving a colonoscopy. We also reviewed his other family history and he shares that only has a paternal uncle had colon cancer besides this new diagnosis with his sister. ROS General General: No weight change, appetite, fatigue, colon cancer, breast cancer or weakness HEENT HEENT: No difficulty swallowing, eye injury, eye surgery, swollen glands or hoarseness Endo Endocrine: No thyroid disease, diabetes mellitus, thyroid cancer, Hair loss, heat intolerance or cold intolerance Skin Skin: No rash or changing moles Breast Breast: No left breast lump, right breast lump, nipple discharge, breast pain, abnormal mammogram, abnormal US or breast enlargement Musc Musculoskeletal: No back problems, arthritis, rheumatoid arthritis, gout or joint pain Cardio Cardiovascular: No murmur, pacemaker, heart disease, atrial fibrillation, high blood pressure, heart attack, heart stent, palpitations, shortness of breat with exertion or chest pain Psych Psychiatric: Yes anxiety; No depression or hearing voices Resp Respiratory: No shortness of breath, No sleep apnea, No cough, No COPD, No asthma, No emphysema and No wheezing Gastro Gastrointestinal: No abdominal pain, No nausea or vomiting, No diarrhea, No constipation, No blood in stool, No acid reflux, No hemorrhoids, No ulcers, No gallbladder problem and No black,tarry stools Elie Hematologic: No blood thinners, No blood disorders, No bleeding, No anemia and No blood clots Neuro Neurologic: No system reviewed and no additional complaints, except as documented, No as per HPI, No abnormal gait, No abnormal hearing, No abnormal movements, No abnormal speech, No behavioral changes, No burning sensations, No confusion, No convulsions, No disequilibrium, No dizziness, No localized weakness, No frequent falls, No headache(s), No lack of coordination, No loss of vision, No memory loss, No numbness, No other visual disturbances, No radicular pain, No restless legs, No sensory deficit, No syncope, No tingling, No tremor(s), No weakness and No other Exam Const General: cooperative, comfortable and anxious Orientation: alert, awake and oriented x3 Resp Effort & Inspection: normal respiratory effort GI Other: No scars, not obese, soft, nontender to palpation x 4 quadrants Assessment and Plan Assessment and Plan (1) Villous adenoma of rectum: Status: Acute Comment: This is a 53-year-old male who underwent screening colonoscopy August 2021 and was found to have a small villous adenoma of the rectum. Polyp was felt to be completely removed and retrieved, however, given the histology surveillance colonoscopy at 1 year is recommended. He completed this surveillance colonoscopy 10/30/2022 where he was found to have a tubulovillous adenoma of the rectum. Patient presents today without any significant interval changes to his personal health. However, he reports that his sister continues to do poorly after a diagnosis of advanced rectal cancer. Today he shares that an uncle also succumbed to this diagnosis years ago in his sixth decade of life. 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 Additionally, we will plan for surveillance colonoscopy as previously decided. Patient did have a difficulty with his prep during the first scopes so we will plan for a 2-day prep this go around and have advised him to restrict high-fiber foods for least 4 days prior to his prep to ensure a fruitful exam. Plan: Proceed with surveillance colonoscopy on 11/12/2023 as previously arranged I have examined the patient and the H&P has been reviewed. There are no clinical changes since date of exam. Mr. Ibrahim confirms that he completed his prep successfully and that his output is now clear. His exam is benign. Neither he nor his significant other have any further questions so we will proceed to the endoscopy suite for planned surveillance colonoscopy as discussed in greater detail above.
--- NOTE | 2023-11-12 12:00 | COLBX_PTH ---
PATIENT: DOMINIQUE LOZADA LOC: EN U#:[id number] AGE/SX: 53/M ROOM: RE11/12/[address]: Dr. Suresh Burk MD : 1970 BED: DIS: 11/12/2023 SPEC #: [id number] RECD: 11/12/23 14:01 STATUS: REAL TOOTIE #: [id number] JONO: 11/12/23 12:[address]: Suresh Burk DEPT: SURGICAL PATHOLOGY RECD BY: Maria Isabel Rae ENTERED: 11/13/23 08:56 SP TYPE: COLON BX OTHR DR: No Primary Care Phys Tissues: A - Cecum, NOS B - Transverse colon C - Descending colon D - Rectum, NOS Procedures: Surgery Specimen Level IV HEADER OPERATION: Colonoscopy and polypectomy, polyp biopsy, tattoo application PRE-OP DIAGNOSIS: Villous adenoma of rectum TISSUE SUBMITTED: A - Cecal polyp, B - Distal transverse colon polyp, C - Descending colon polyp, D - Rectal polyp MICROSCOPIC DIAGNOSIS A. Cecal polyp, biopsy: Polypoid fragment of benign colonic mucosa. See comment. B. Distal transverse colon polyp, biopsy: Polypoid fragments of benign colonic mucosa. See comment. C. Descending colon polyp, biopsy: Fragments of tubular adenoma. D. Rectal polyp, biopsy: Fragments of tubulovillous adenoma. AM:minna 11/14/2023 COMMENT A & B. Neither hyperplastic nor adenomatous change is identified. Clinical correlation is suggested. MICROSCOPIC DESCRIPTION Slides are reviewed. GROSS DESCRIPTION A - Received in fixative is one container labeled with the patient's name and designated cecum polyp biopsy. The specimen consists of one irregular fragment of light el soft tissue that measures 0.3 x 0.3 x 0.1 cm. The specimen is totally submitted in one cassette. B - Received in fixative is one container labeled with the patient's name and designated distal transverse polyp. The specimen consists of two irregular fragments of light el soft tissue that in aggregate measure 0.4 x 0.2 x 0.1 cm. The specimen is totally submitted in one cassette. C - Received in fixative is one container labeled with the patient's name and designated descending colon polyp. The specimen consists of one irregular fragment of light el soft tissue that measures 0.6 x 0.3 x 0.1 cm. The specimen is totally submitted in one cassette. D - Received in fixative is one container labeled with the patient's name and designated rectal polyp. The specimen consists of multiple irregular fragments of light el soft tissue that in aggregate measure 3.0 x 2.0 x 0.2 cm. The specimen is totally submitted in one cassette. / SJ:rg 11/13/2023 TC:5 CPT: 01592 x4
[2023-11-12] MEDS: 0.9% Saline Lock 10 ML Syringe IV (12:50)
--- NOTE | 2023-11-12 13:40 | OP.COLON_ITS ---
Patient Name: Perry Ibrahim Procedure Date: 11/12/2023 11:55 AM Date of : 1970 Age: 53 Procedure: Colonoscopy Indications: High risk colon cancer surveillance: Personal history of colonic polyps, Family history of rectal cancer in a first-degree relative before age 60 years Providers: Suresh Burk MD Referring MD: Suresh Burk MD Medicines: See the Anesthesia note for documentation of the administered medications Patient Profile: Last Colonoscopy: 1 year ago. Complications: No immediate complications. Estimated blood loss: Minimal. Procedure: Pre-Anesthesia Assessment: - The heart rate, respiratory rate, oxygen saturations, blood pressure, adequacy of pulmonary ventilation, and response to care were monitored throughout the procedure. After I obtained informed consent, the scope was passed under direct vision. Throughout the procedure, the patient's blood pressure, pulse, and oxygen saturations were monitored continuously. The colonoscope was introduced through the anus and advanced to the cecum, identified by appendiceal orifice and ileocecal valve. The colonoscopy was somewhat difficult due to abnormal anatomy. Successful completion of the procedure was aided by performing the maneuvers documented (below) in this report. The patient tolerated the procedure well. The quality of the bowel preparation was excellent. Scope In: 12:03:36 PM Scope Withdrawal Time 1 hour 14 minutes 54 seconds Scope Out: 1:25:28 PM Total Procedure Duration Time 1 hour 21 minutes 52 seconds Findings: The perianal and digital rectal examinations were normal. Pertinent negatives include normal sphincter tone. Three semi-sessile polyps were found in the descending colon, distal transverse colon and cecum. The polyps were 3 to 8 mm in size. Biopsies were taken with a cold forceps for histology. Estimated blood loss was minimal. A 20 mm, non-bleeding polyp was found in the mid rectum. The polyp was semi-sessile. The polyp was removed with a saline injection-lift technique using a hot snare. Resection and retrieval were complete. Estimated blood loss was minimal. Coagulation for hemostasis of bleeding caused by the procedure using snare was successful. Area was tattooed with an injection of 5 mL of Joann ink. Estimated blood loss was minimal. The retroflexed view of the distal rectum and anal verge was normal and showed no anal or rectal abnormalities. No biopsies or other specimens were collected for this exam. Multiple small-mouthed diverticula were found in the sigmoid colon and transverse colon. No biopsies or other specimens were collected for this exam. Impression: - Three 3 to 8 mm polyps in the descending colon, in the distal transverse colon and in the cecum. Biopsied. - One 20 mm, non-bleeding polyp in the mid rectum, removed using injection-lift and a hot snare. Resected and retrieved. Treated with a hot snare. Tattooed. - The distal rectum and anal verge are normal on retroflexion view. Recommendation: - Discharge patient to home (via wheelchair). - Resume previous diet today. - Continue present medications. - Await pathology results. - Telephone my office for pathology results in 1 week. - Repeat colonoscopy is recommended for surveillance of multiple adenomas. The colonoscopy date will be determined after pathology results from today's exam become available for review. Procedure Code(s): --- Professional --- 17491, Colonoscopy, flexible; with removal of tumor(s), polyp(s), or other lesion(s) by snare technique 61915, 59, Colonoscopy, flexible; with biopsy, single or multiple 15875, Colonoscopy, flexible; with directed submucosal injection(s), any substance Diagnosis Code(s): --- Professional --- Z86.010, Personal history of colonic polyps D12.4, Benign neoplasm of descending colon D12.3, Benign neoplasm of transverse colon (hepatic flexure or splenic flexure) D12.0, Benign neoplasm of cecum D12.8, Benign neoplasm of rectum Z80.0, Family history of malignant neoplasm of digestive organs CPT copyright 2021 [employer]. All rights reserved. The codes documented in this report are preliminary and upon private tutor review may be revised to meet current compliance requirements. Suresh Burk MD 11/12/2023 1:39:38 PM This report has been signed electronically. Number of Addenda: 0 Note Initiated On: 11/12/2023 11:55 AM
--- NOTE | 2023-11-12 13:40 | OP.CCLET_ITS ---
11/12/2023 No Primary Care Physician Re : Colonoscopy procedure for Perry Ibrahim Dear Care Physician This procedure was performed on Sunday, November 12, 2023. My impressions and recommendations are as follows: Impressions : - Three 3 to 8 mm polyps in the descending colon, in the distal transverse colon and in the cecum. Biopsied. - One 20 mm, non-bleeding polyp in the mid rectum, removed using injection-lift and a hot snare. Resected and retrieved. Treated with a hot snare. Tattooed. - The distal rectum and anal verge are normal on retroflexion view. Recommendations : - Discharge patient to home (via wheelchair). - Resume previous diet today. - Continue present medications. - Await pathology results. - Telephone my office for pathology results in 1 week. - Repeat colonoscopy is recommended for surveillance of multiple adenomas. The colonoscopy date will be determined after pathology results from today's exam become available for review. My findings are described in the full procedure note, which is enclosed. If I can be of further assistance, please feel free to contact me at Doctor phone number(s): , Work: . Sincerely, Suresh Burk MD 11/12/2023 1:39:38 PM This report has been signed electronically.
== END 2023-11-12 14:31 | disposition home or self-care (01) ==
LOC: EN 10:37 → AC 10:39
PROVIDERS: Referring Provider Surgery; Visit Provider Surgery
PROC: 0DJD8ZZ Inspection of Lower Intestinal Tract, Via Natural or Artificial Opening Endoscopic (ICD-10-PCS; CPT 45378; principal; 2023-11-12 11:55)
DX: Z12.11 Encounter for screening for malignant neoplasm of colon (principal); Z86.010 Personal history of colon polyps; D12.8 Benign neoplasm of rectum; Z80.0 Family history of malignant neoplasm of digestive organs; K57.30 Diverticulosis of large intestine without perforation or abscess without bleeding; D12.4 Benign neoplasm of descending colon
CPT/HCPCS: 45385; 45380; 45381; 88305; J7120; A4216; A4648; J2405; J3490